=== PATIENT | female | born 1940 | race Hispanic/Latino ===

== ENCOUNTER 2017-11-19 14:29 | Emergency (ER) | payer MEDICARE, OTHER ==
[2017-11-19 15:18] LABS: Bilirubin,Urine NEG (Negative); Blood,Urine LG (Negative); Color,Urine Red (Yellow); Mucus,Urine 3+ /HPF; Urobilinogen,Urine < 2.0 mg/dL (<2.0)
[2017-11-19 15:19] LABS: RBC,Urine > 182.0 /HPF (0.0-6.0)
[2017-11-19] MEDS ORDERED: TORADOL IM ONE (15:31)
[2017-11-19] MEDS ORDERED: PERCOCET 5/325 PO ONE (15:31)
--- NOTE | 2017-11-19 15:36 | Emergency Department Report ---
Blank Doc - Documentation Documentation: 77-year-old female with a past medical history of not insulin dependent diabetes and kidney stones requiring lithotripsy in the past presents to the hospital complaining of left lower quadrant pain and hematuria 4 days. Pain is constant, severe, only minimally relieved with prescribed hydrocodone. Worse with palpation. Patient denies fever, back pain, nausea, or vomiting. Patient was seen by an urgent care 4 days ago and put on ciprofloxacin for UTI. She saw her urologist Dr. Lees next day (3 days) ago and was started on hydrocodone and outpatient CT abdomen and pelvis was ordered for November 23. Patient comes to the ER today because pain is worsening and the hematuria is increasing despite taking Cipro and Hydrocodone LLQ tenderness on exam, no cva tenderness labs: cbc, bmp, ua, urine culture ct a/p noncontrast Pain meds: toradol IM, Percocet 5/325 mg x 2 mild level to evaluate
--- NOTE | 2017-11-19 16:29 | Cat Scan Report ---
FINAL REPORT PROCEDURE: CT ABDOMEN PELVIS WO CON TECHNIQUE: Computerized axial tomography of the abdomen and pelvis was performed without intravenous contrast. This study is performed without intravascular contrast material and its sensitivity for abdominal and pelvic pathology, including neoplasms, inflammation, abscess, free fluid, thrombosis, arterial dissection and infarction, is reduced compared with a contrast enhanced study. HISTORY: hematuria, hx of kidney stone COMPARISON: No prior studies are available for comparison. FINDINGS: Visualized lower thorax: Bilateral lower lobe septal thickening may be chronic or related to interstitial edema. Liver: The hepatic dome is not fully imaged, otherwise the liver is grossly unremarkable. Spleen: Normal size and attenuation. Gallbladder and biliary system: Cholelithiasis. Pancreas: Calcified pancreatic granulomas are present. Adrenals: Normal. Kidneys: There is a focal rounded area in the superior right renal pelvis, measuring up to 3 centimeters, possibly a hyperdense cyst. No hydronephrosis bilaterally. There is a 3 millimeter nonobstructing calculus in the left kidney upper pole. GI tract: There is sigmoid and left colon diverticulosis. No bowel obstruction or acute inflammation is seen. Lymph nodes and mesentery: Normal. Vasculature: Aortic and bilateral common iliac artery calcification. Bladder: Normal. Reproductive organs: Uterus is not visualized. Peritoneum: No free fluid. Musculoskeletal structures: Minimal degenerative disc changes at L4-5 and L5-S1. Other: None. IMPRESSION: No acute inflammatory process is seen. There is a nonobstructing left renal calculus. Cholelithiasis.
[2017-11-19 16:40] LABS: Basophils % (Auto) 0.5 % (0.0-1.8); Eosinophils # (Auto) 0.1 K/mm3 (0.0-0.4); Eosinophils % (Auto) 2.2 % (0.0-4.3); Hematocrit 38.5 % (30.3-42.9); Hemoglobin 13.2 gm/dl (10.1-14.3); Lymphocytes # (Auto) 2.1 K/mm3 (1.2-5.4); Lymphocytes % (Auto) 33.5 % (13.4-35.0); Mean Corpuscular HGB Conc 34 % (30-34); Mean Corpuscular Hemoglobin 34 pg (28-32); Mean Corpuscular Volume 98 fl (79-97); Monocytes # (Auto) 0.5 K/mm3 (0.0-0.8); Monocytes % (Auto) 7.8 % (0.0-7.3); Platelet Count 206 K/mm3 (140-440); Red Blood Count 3.93 M/mm3 (3.65-5.03); Red Cell Distribution Width 13.5 % (13.2-15.2)
[2017-11-19 16:49] LABS: INR 0.91 (0.87-1.13)
[2017-11-19 16:50] LABS: BUN/Creatinine Ratio 33; Blood Urea Nitrogen 23 mg/dL (7-17); Calcium 9.7 mg/dL (8.4-10.2); Hemolysis Index 9; Partial Thromboplastin Time 33.1 Sec. (24.2-36.6)
--- NOTE | 2017-11-19 17:57 | Emergency Department Report ---
ED Female HPI - General Chief complaint: Urogenital-Female Stated complaint: BLOOD IN URINE Time Seen by Provider: 11/19/17 15:31 Source: patient, family Mode of arrival: Ambulatory Limitations: No Limitations - History of Present Illness Initial comments: 77-year-old female past medical history renal colic, hypertension presents with complaint of left flank pain radiating to left groin region with associated dysuria and episodes of hematuria. Patient is awake alert and oriented 3 not in acute distress. Denies fever or chills or nausea or vomiting. Primarily complaining of dysuria and flank pain. It is intermittent and colicky in nature. Patient states she saw her urologist Dr. Lees earlier this week ordered an outpatient noncontrast CT of her abdomen and pelvis. Patient states that pain has persisted over the last several days which is why she presented here. Patient was screened by Dr. Urias earlier. Upon my interview patient does not report any severe pain or nausea. Patient states she finished a course of ciprofloxacin which was described to her by Dr. Yoana TURK Complaint: dysuria Onset/Timin -: week(s) Radiation: L flank Severity: moderate Severity scale (0 -10): 5 Quality: aching Consistency: intermittent Improves with: none Worsens with: none - Related Data Sexually active: No Home Medications Medication Instructions Recorded Confirmed Last Taken Saxagliptin HCl [Onglyza] 5 mg PO QDAY 03/19/13 06/18/15 03/19/13 10:00 glipiZIDE [Glucotrol] 10 mg PO BID 03/19/13 06/18/15 03/19/13 10:00 metFORMIN [Glucophage] 500 mg PO BID 03/19/13 06/18/15 03/19/13 10:00 Bromfenac Sodium (Nf) [Bromday 1 drop OP QID 06/18/15 06/18/15 Unknown (Nf)] Donepezil [Aricept] 5 mg PO QDAY 06/18/15 06/18/15 Unknown Gatifloxacin [Zymaxid 0.5%] 1 drop OP QID 06/18/15 06/18/15 Unknown Losartan [Cozaar] 50 mg PO QDAY 06/18/15 06/18/15 Unknown lamoTRIgine [LaMICtal] 75 mg PO BID 06/18/15 06/18/15 Unknown prednisoLONE 1% SOD PHOSP(NF) 1 drops OP QID 06/18/15 06/18/15 Unknown [Prednisol] Previous Rx's Medication Instructions Recorded Last Taken Type Ciprofloxacin HCl [Ciprofloxacin 500 mg PO BID #14 tablet 06/18/15 Unknown Rx TAB] Ondansetron [Zofran Odt] 4 mg PO Q8HR #10 tab.rapdis 06/18/15 Unknown Rx Nitrofurantoin Monohyd/M-Cryst 100 mg PO BID #10 capsule 11/19/17 Unknown Rx [Macrobid 100 mg Capsule] Allergies Allergy/AdvReac Type Severity Reaction Status Date / Time No Known Allergies Allergy Verified 11/17/14 16:30 ED Review of Systems ROS: Stated complaint: BLOOD IN URINE Other details as noted in HPI Constitutional: denies: chills, fever Eyes: denies: eye pain, eye discharge, vision change ENT: denies: ear pain, throat pain Respiratory: denies: cough, shortness of breath, wheezing Cardiovascular: denies: chest pain, palpitations Endocrine: no symptoms reported Gastrointestinal: abdominal pain (left-sided flank pain). denies: nausea, diarrhea Genitourinary: frequency. denies: urgency, dysuria, discharge Musculoskeletal: denies: back pain, joint swelling, arthralgia Skin: denies: rash, lesions Neurological: denies: headache, weakness, paresthesias Psychiatric: denies: anxiety, depression Hematological/Lymphatic: denies: easy bleeding, easy bruising ED Past Medical Hx - Past Medical History Hx Diabetes: Yes Hx Kidney Stones: Yes Additional medical history: trigeminal nerve damage - Surgical History Hx Appendectomy: Yes Additional Surgical History: kidney stone removed - Social History Smoking Status: Never Smoker Substance Use Type: None - Medications Home Medications: Home Medications Medication Instructions Recorded Confirmed Last Taken Type Saxagliptin HCl [Onglyza] 5 mg PO QDAY 03/19/13 06/18/15 03/19/13 10:00 History glipiZIDE [Glucotrol] 10 mg PO BID 03/19/13 06/18/15 03/19/13 10:00 History metFORMIN [Glucophage] 500 mg PO BID 03/19/13 06/18/15 03/19/13 10:00 History Bromfenac Sodium (Nf) [Bromday 1 drop OP QID 06/18/15 06/18/15 Unknown History (Nf)] Ciprofloxacin HCl [Ciprofloxacin 500 mg PO BID #14 tablet 06/18/15 Unknown Rx TAB] Donepezil [Aricept] 5 mg PO QDAY 06/18/15 06/18/15 Unknown History Gatifloxacin [Zymaxid 0.5%] 1 drop OP QID 06/18/15 06/18/15 Unknown History Losartan [Cozaar] 50 mg PO QDAY 06/18/15 06/18/15 Unknown History Ondansetron [Zofran Odt] 4 mg PO Q8HR #10 tab.rapdis 06/18/15 Unknown Rx lamoTRIgine [LaMICtal] 75 mg PO BID 06/18/15 06/18/15 Unknown History prednisoLONE 1% SOD PHOSP(NF) 1 drops OP QID 06/18/15 06/18/15 Unknown History [Prednisol] Nitrofurantoin Monohyd/M-Cryst 100 mg PO BID #10 capsule 11/19/17 Unknown Rx [Macrobid 100 mg Capsule] ED Physical Exam - General Limitations: No Limitations ED Course Vital Signs 11/19/17 11/19/17 14:34 16:00 Temperature 98.0 F Pulse Rate 77 Respiratory 16 18 Rate Blood Pressure 138/58 O2 Sat by Pulse 96 Oximetry ED Medical Decision Making - Lab Data Result diagrams: 11/19/17 16:24 11/19/17 16:24 - Medical Decision Making A/P: Renal colic, UTI 1-patient states she finished a course of ciprofloxacin. I discussed this with Dr. Urias will give patient a course of Macrobid as well 2-patient states she has 28 pills of hydrocodone at home for pain 3-I discussed case with on-call urologist Dr. Vasques who is covering for Dr. Lees. I discussed results of CT lab work and urinalysis. As per Dr. Vasques there is no acute intervention at this time as patient does not have obstructing kidney stone. Patient to follow-up in office this week 4- vital signs stable for discharge. Patient tolerating by mouth fluid and food. Reports no fevers or chills. I advised her that if she does develop fever chills and inability to tolerate by mouth with worsening flank pain or severe hematuria to return to the ED. Patient stated she understood my instructions. Critical care attestation.: If time is entered above; I have spent that time in minutes in the direct care of this critically ill patient, excluding procedure time. ED Disposition Clinical Impression: Flank pain, Renal colic on left side Urinary tract infection Qualifiers: Urinary tract infection type: acute cystitis Hematuria presence: without hematuria Qualified Code(s): N30.00 - Acute cystitis without hematuria Disposition: TO HOME OR SELFCARE Is pt being admited?: No Does the pt Need Aspirin: No Condition: Stable Instructions: Renal Colic (ED), Flank Pain (ED), Urinary Tract Infection in Women (ED) Prescriptions: Nitrofurantoin Monohyd/M-Cryst [Macrobid 100 mg Capsule] 100 mg PO BID #10 capsule Referrals: NAHED LEES MD [Staff Physician] - 3-5 Days Time of Disposition: 18:06
[2017-11-19 18:20] VITALS: BP 121/52
== END 2017-11-19 18:20 | disposition home or self-care (01) ==
LOC: ED 14:29
DX: N30.00 Acute cystitis without hematuria (principal); E11.9 Type 2 diabetes mellitus without complications; Z90.89 Acquired absence of other organs
CPT/HCPCS: 36415; 74176; 80048; 81001; 85025; 85610; 85730; 87086; 96372; 99284; J1885

== ENCOUNTER 2018-02-06 11:42 | Outpatient (CLI) | payer MEDICARE, OTHER ==
--- NOTE | 2018-02-07 10:30 | Cat Scan Report ---
CT ABDOMEN PELVIS WITH CONTRAST: HISTORY: abdominal pain. COMPARISON: 02/14/12. 11/19/17. TECHNIQUE: Helical CT in 1.25mm intervals following IV contrast. Sagittal and coronal reconstructions. FINDINGS: Lung bases: Mild chronic interstitial changes are noted at the lung bases. No infiltrate or effusion. Normal heart size. Liver: Normal. Biliary system: A tiny 3 mm gallstone is noted in the dependent gallbladder. No evidence for biliary dilatation or inflammation. The common bile duct appears normal. Pancreas: Normal. Spleen: Normal. Kidneys/ureters/bladder: The kidneys are normal size and position. 7 mm calyceal stone in the superior pole of the left kidney is unchanged. No additional nephrolithiasis. No hydronephrosis. A slightly complex cyst is suspected in the superior right renal sinus measuring up to 2.5 cm. This is unchanged since 11/19/17 but appears to be new since 2011. This appears to represent a parapelvic cyst. The ureters and bladder are unremarkable. Adrenal glands: Normal. Aorta: Mild diffuse calcifications. No aneurysm or stenosis. Intestines: Scattered diverticula are identified in the distal colon. There is no evidence for acute inflammatory change, mass or obstruction.. Appendix: Appendectomy changes are suspected. Pelvic viscera: The uterus and adnexa are unremarkable. Mild left ovarian vein varicosity is unchanged. Ascites: None. Adenopathy: None. Musculoskeletal: Osteopenia. Mild lumbar spondylosis. No fracture or suspicious bony lesion. IMPRESSION: No acute process is identified in the abdomen or pelvis. Tiny gallstone. 7 mm left renal stone, nonobstructing. Parapelvic cyst in the superior right kidney, slightly complex. Mild diverticulosis of the distal colon. No evidence for diverticulitis. Mild left ovarian vein varicosity, unchanged.
== END 2018-02-06 11:43 | disposition home or self-care (01) ==
LOC: CT 11:42
PROVIDERS: ATTEND Internal Medicine Gastroenterology
DX: N20.0 Calculus of kidney (principal); N28.1 Cyst of kidney, acquired; K57.30 Diverticulosis of large intestine without perforation or abscess without bleeding; Z90.49 Acquired absence of other specified parts of digestive tract
CPT/HCPCS: 74177; Q9967

== ENCOUNTER 2018-09-06 12:11 | Emergency (ER) | payer MEDICARE, OTHER ==
[2018-09-06 13:01] LABS: Basophils # (Auto) 0.1 K/mm3 (0.0-0.1); Basophils % (Auto) 0.7 % (0.0-1.8); Eosinophils # (Auto) 0.1 K/mm3 (0.0-0.4); Eosinophils % (Auto) 0.7 % (0.0-4.3); Hematocrit 36.9 % (30.3-42.9); Hemoglobin 12.9 gm/dl (10.1-14.3); Lymphocytes # (Auto) 1.1 K/mm3 (1.2-5.4); Lymphocytes % (Auto) 11.8 % (13.4-35.0); Mean Corpuscular HGB Conc 35 % (30-34); Mean Corpuscular Volume 96 fl (79-97); Monocytes # (Auto) 0.6 K/mm3 (0.0-0.8); Monocytes % (Auto) 6.4 % (0.0-7.3); Platelet Count 228 K/mm3 (140-440); Red Blood Count 3.86 M/mm3 (3.65-5.03); Red Cell Distribution Width 14.3 % (13.2-15.2)
[2018-09-06] MEDS ORDERED: MORPHINE IV ONE (13:21)
[2018-09-06] MEDS ORDERED: NACL 0.9% 1000 ML 1,000 ML IV ONE (13:21)
[2018-09-06] MEDS ORDERED: ZOFRAN IV ONE (13:21)
--- NOTE | 2018-09-06 13:32 | Emergency Department Report ---
ED Abdominal Pain HPI - General Chief Complaint: Abdominal Pain Stated Complaint: LT SIDE PAIN Time Seen by Provider: 09/06/18 12:57 Source: patient Mode of arrival: Stretcher Limitations: No Limitations - History of Present Illness Initial Comments: 78-year-old female presents to the ED with right-sided flank pain. Patient reports history of kidney stones, hematuria, multiple UTIs. Hasn't states patient was seen at Dr. Lees's office 2 days ago and given an antibiotic shot for a UTI. The patient and is scheduled to undergo cystoscopy for her hematuria. This morning patient began having right flank pain and nausea. Denies vomiting, fever. Patient denies hematuria today. MD Complaint: flank pain -: This morning Location: R flank Migration to: no migration Severity: moderate Severity scale (0 -10): 0 Quality: sharp Consistency: constant Improves With: nothing Worsens With: nothing Associated Symptoms: nausea. denies: vomiting, fever - Related Data Home Medications Medication Instructions Recorded Confirmed Last Taken Saxagliptin HCl [Onglyza] 5 mg PO QDAY 03/19/13 06/18/15 03/19/13 10:00 glipiZIDE [Glucotrol] 10 mg PO BID 03/19/13 06/18/15 03/19/13 10:00 metFORMIN [Glucophage] 500 mg PO BID 03/19/13 06/18/15 03/19/13 10:00 Bromfenac Sodium (Nf) [Bromday 1 drop OP QID 06/18/15 06/18/15 Unknown (Nf)] Donepezil [Aricept] 5 mg PO QDAY 06/18/15 06/18/15 Unknown Gatifloxacin [Zymaxid 0.5%] 1 drop OP QID 06/18/15 06/18/15 Unknown Losartan [Cozaar] 50 mg PO QDAY 06/18/15 06/18/15 Unknown lamoTRIgine [LaMICtal] 75 mg PO BID 06/18/15 06/18/15 Unknown prednisoLONE 1% SOD PHOSP(NF) 1 drops OP QID 06/18/15 06/18/15 Unknown [Prednisol] Previous Rx's Medication Instructions Recorded Last Taken Type Ciprofloxacin HCl [Ciprofloxacin 500 mg PO BID #14 tablet 06/18/15 Unknown Rx TAB] Ondansetron [Zofran Odt] 4 mg PO Q8HR #10 tab.rapdis 06/18/15 Unknown Rx Nitrofurantoin Monohyd/M-Cryst 100 mg PO BID #10 capsule 11/19/17 Unknown Rx [Macrobid 100 mg Capsule] Ondansetron [Zofran Odt] 4 mg PO Q8HR PRN #20 tab.rapdis 09/06/18 Unknown Rx traMADol [Ultram] 50 mg PO Q6HR PRN #10 tablet 09/06/18 Unknown Rx Allergies Allergy/AdvReac Type Severity Reaction Status Date / Time No Known Allergies Allergy Verified 11/17/14 16:30 ED Review of Systems ROS: Stated complaint: LT SIDE PAIN Other details as noted in HPI Comment: All other systems reviewed and negative Constitutional: denies: fever Gastrointestinal: abdominal pain, nausea. denies: vomiting, diarrhea Genitourinary: denies: hematuria ED Past Medical Hx - Past Medical History Hx Diabetes: Yes Hx Kidney Stones: Yes Additional medical history: trigeminal nerve damage - Surgical History Hx Appendectomy: Yes Additional Surgical History: kidney stone removed - Social History Smoking Status: Never Smoker Substance Use Type: None - Medications Home Medications: Home Medications Medication Instructions Recorded Confirmed Last Taken Type Saxagliptin HCl [Onglyza] 5 mg PO QDAY 03/19/13 06/18/15 03/19/13 10:00 History glipiZIDE [Glucotrol] 10 mg PO BID 03/19/13 06/18/15 03/19/13 10:00 History metFORMIN [Glucophage] 500 mg PO BID 03/19/13 06/18/15 03/19/13 10:00 History Bromfenac Sodium (Nf) [Bromday 1 drop OP QID 06/18/15 06/18/15 Unknown History (Nf)] Ciprofloxacin HCl [Ciprofloxacin 500 mg PO BID #14 tablet 06/18/15 Unknown Rx TAB] Donepezil [Aricept] 5 mg PO QDAY 06/18/15 06/18/15 Unknown History Gatifloxacin [Zymaxid 0.5%] 1 drop OP QID 06/18/15 06/18/15 Unknown History Losartan [Cozaar] 50 mg PO QDAY 06/18/15 06/18/15 Unknown History Ondansetron [Zofran Odt] 4 mg PO Q8HR #10 tab.rapdis 01/28/16 Unknown Rx lamoTRIgine [LaMICtal] 75 mg PO BID 06/18/15 06/18/15 Unknown History prednisoLONE 1% SOD PHOSP(NF) 1 drops OP QID 06/18/15 06/18/15 Unknown History [Prednisol] Nitrofurantoin Monohyd/M-Cryst 100 mg PO BID #10 capsule 11/19/17 Unknown Rx [Macrobid 100 mg Capsule] Ondansetron [Zofran Odt] 4 mg PO Q8HR PRN #20 tab.rapdis 09/06/18 Unknown Rx traMADol [Ultram] 50 mg PO Q6HR PRN #10 tablet 09/06/18 Unknown Rx ED Physical Exam - General Limitations: No Limitations General appearance: alert, other (appear uncomfortable) - Head Head exam: Present: atraumatic, normocephalic - Eye Eye exam: Present: normal appearance - ENT ENT exam: Present: mucous membranes moist - Neck Neck exam: Present: normal inspection - Respiratory Respiratory exam: Present: normal lung sounds bilaterally. Absent: respiratory distress - Cardiovascular Cardiovascular Exam: Present: regular rate, normal rhythm - GI/Abdominal GI/Abdominal exam: Present: soft, tenderness (RLQ, LLQ, suprapubic tenderness). Absent: distended - Extremities Exam Extremities exam: Present: normal inspection - Back Exam Back exam: Absent: CVA tenderness (R), CVA tenderness (L) - Neurological Exam Neurological exam: Present: alert, oriented X3 - Psychiatric Psychiatric exam: Present: normal affect, normal mood - Skin Skin exam: Present: warm, dry, intact, normal color ED Course Vital Signs 09/06/18 09/06/18 09/06/18 12:15 12:50 14:13 Temperature 98.5 F Pulse Rate 85 66 Respiratory 19 17 Rate Blood Pressure 173/81 141/63 [Left] O2 Sat by Pulse 100 99 100 Oximetry 09/06/18 09/06/18 09/06/18 14:59 16:59 17:55 Temperature Pulse Rate 80 77 80 Respiratory 19 18 19 Rate Blood Pressure 164/57 152/65 132/66 [Left] O2 Sat by Pulse 99 100 100 Oximetry - Consultations Consultation #1: 09/06/18 16:42 Spoke w/ Dr Vasques. States give pt a copy of CT and f/u in office tomorrow ED Medical Decision Making - Lab Data Result diagrams: 09/06/18 12:46 09/06/18 12:46 - Radiology Data Radiology results: report reviewed, image reviewed - Medical Decision Making 78-year-old female with ongoing hematuria presents to the ED with right flank pain and abdominal pain. No emesis here in ED. Pain improved with IV morphine. CT scan showed no acute findings. Patient does have right renal mass that was present on CT from last year, appears to be slightly enlarged according to radiologist, could be a source of her hematuria. Spoke with Dr. Vasques, partner w/ Dr Lees. Wants pt to come to office tomorrow w/ copy of CT scan, which was given to the . Prescription given for tramadol and zofran. Vitals improved. Return precautions given. - Differential Diagnosis UTI, kidney stone, appendicitis Critical care attestation.: If time is entered above; I have spent that time in minutes in the direct care of this critically ill patient, excluding procedure time. ED Disposition Clinical Impression: Flank pain, Hematuria, Renal mass, right Disposition: DC- TO HOME OR SELFCARE Is pt being admited?: No Condition: Stable Instructions: Abdominal Pain (ED) Prescriptions: traMADol [Ultram] 50 mg PO Q6HR PRN #10 tablet PRN Reason: Pain Ondansetron [Zofran Odt] 4 mg PO Q8HR PRN #20 tab.rapdis PRN Reason: Vomiting Referrals: NAHED LEES MD [Staff Physician] - 24 Hours Time of Disposition: 16:44
[2018-09-06 13:48] LABS: Bilirubin,Urine NEG (Negative); Blood,Urine LG (Negative); Color,Urine Red (Yellow); Hyaline Casts,Urine 1 /LPF; Mucus,Urine FEW /HPF; Urobilinogen,Urine < 2.0 mg/dL (<2.0)
[2018-09-06 13:53] LABS: RBC,Urine > 182.0 /HPF (0.0-6.0)
[2018-09-06 14:04] LABS: Albumin 4.2 g/dL (3.9-5); BUN/Creatinine Ratio 18; Blood Urea Nitrogen 18 mg/dL (7-17); Calcium 9.9 mg/dL (8.4-10.2); Hemolysis Index 106
[2018-09-06 14:05] LABS: Bilirubin,Direct < 0.2 mg/dL (0-0.2)
[2018-09-06 14:06] LABS: Alanine Aminotransferase 13 units/L (7-56)
--- NOTE | 2018-09-06 14:49 | Cat Scan Report ---
CT ABDOMEN PELVIS WITHOUT CONTRAST: HISTORY: Right flank pain, hematuria. COMPARISON: none. TECHNIQUE: Helical CT in 1.25mm intervals without IV contrast. Sagittal and coronal reconstructions. FINDINGS: Lung bases: Mild chronic interstitial changes are noted at the lung bases. Normal heart size. Liver: Normal. Biliary system: A few tiny calcified gallstones are noted in the gallbladder. No biliary dilatation or inflammation. Pancreas: Normal. Spleen: Normal. Kidneys/ureters/bladder: Moderate to severe right perinephric stranding has developed. There is mild right hydronephrosis containing dense fluid which probably represents blood. No obvious right nephrolithiasis is identified. A 5 mm calyceal stone is identified in the superior left kidney. At the superior pole the right kidney there appears to be expansion of the superior calyx which was noted on previous examinations. The etiology of this is unclear. This may represent a parapelvic cyst. I cannot entirely exclude a neoplastic lesion. Adrenal glands: Normal. Aorta: Moderate distal calcifications. No aneurysm. Intestines: No oral contrast was administered. There are multiple diverticula in the distal colon. No evidence for bowel obstruction or focal inflammation. Appendix: Not confidently identified. Pelvic viscera: Normal. Ascites: None. Adenopathy: None. Musculoskeletal: Osteopenia. Superior endplate deformity is identified at L4 which is a new finding. IMPRESSION: Abnormal right kidney. Moderate right perinephric stranding, mild hydronephrosis and mild hemo-ureter is identified. There appears to be a complex cyst or possibly a mass in the superior right renal calyx which appears to be the source of bleeding. This was noted on previous examinations but appears slightly larger in size. Consider further evaluation with MRI with contrast. I cannot exclude neoplasm such as transitional cell carcinoma. Left renal stone, nonobstructing. Cholelithiasis. Diverticulosis of the colon. L4 superior endplate fracture. The age of this is indeterminate but it is new since 02/06/18.
[2018-09-06 17:57] VITALS: BP 132/66
== END 2018-09-06 17:57 | disposition home or self-care (01) ==
LOC: ED 12:11
DX: N28.89 Other specified disorders of kidney and ureter (principal); R10.9 Unspecified abdominal pain; R31.9 Hematuria, unspecified; E11.9 Type 2 diabetes mellitus without complications
CPT/HCPCS: 36415; 74176; 80048; 80076; 81001; 82150; 83690; 85025; 87086; 96361; 96374; 96375; 99284; J2270; J2405; J7030